=== PATIENT | female | born 1985 | race Hispanic/Latino ===

== ENCOUNTER 2018-01-27 17:44 | Inpatient (IN) | payer BC ==
[~2018-01-27] VITALS: Ht 170.2 cm; Wt 127.0 kg
[~2018-01-27 17:44] MED LIST: PREN1TAB89 PO
[2018-01-27] MEDS ORDERED: PROMETHAZINE HCL 25 MG/ML 1ML AMPULE IM PRN (18:00)
[2018-01-27] MEDS ORDERED: OXYTOCIN-LR 20 UNITS/1000 ML 1,000 ML IV SCH (18:00)
[2018-01-27 18:48] LABS: HEMATOCRIT 28.8 % (36-48); MEAN CORPUSCULAR HEMOGLOBIN 26.9 pg (27.0-33.0); MEAN CORPUSCULAR HGB CONC 34.9 g/dL (32.0-36.0); MEAN CORPUSCULAR VOLUME 77.2 fL (79-99); NUCLEATED RED BLOOD CELLS 0.1 % (0.0-0.19); PLATELET COUNT (AUTO) 269 K/uL (130-400); RED BLOOD CELL COUNT(AUTO) 3.73 MIL/uL (4.00-5.50); RED CELL DISTRIBUTION WIDTH 16.8 % (11.0-15.5); WHITE BLOOD COUNT (AUTO) 7.9 K/uL (4.8-10.8)
[2018-01-27 18:49] LABS: APPEARANCE,URINE Clear (CLEAR); BILIRUBIN,URINE Negative (NEGATIVE); COLOR,URINE Yellow (YELLOW); GLUCOSE, URINE (UA) Negative (NEGATIVE); KETONES,URINE Negative (NEGATIVE); LEUKOCYTE ESTERASE ,URINE Small (NEGATIVE); NITRATE,URINE Negative (NEGATIVE); OCCULT BLOOD,URINE Negative (NEGATIVE); PROTEIN,URINE Negative (NEGATIVE); UROBILINOGEN,URINE 0.2 mg/dL (0.2-1.0)
[2018-01-27 19:02] LABS: BACTERIA,URINE Few /HPF (None Seen); RBC,URINE None Seen /HPF (0-1)
[2018-01-27] MEDS: LACTATED RINGERS 1000ML 1,000 ML IV PRN (19:07)
[2018-01-27] MEDS: MEPERIDINE-PF 50 MG/ML SYG IVP PRN (22:02)
[2018-01-28] VITALS (9 sets, daily range): BP systolic 110–134; BP diastolic 64–80
[2018-01-28] MEDS: MEPERIDINE-PF 50 MG/ML SYG IVP PRN (00:32)
[2018-01-28] MEDS ORDERED: OXYTOCIN 10 USP UNITS/ML 20 UNIT in LACTATED RINGERS 1000ML 1,000 ML IV SCH ×3 (02:30)
[2018-01-28] MEDS ORDERED: OXYTOCIN 10 USP UNITS/ML ONE ×2 (03:02→11:32)
[2018-01-28] MEDS: LACTATED RINGERS 1000ML 1,000 ML IV PRN (03:35)
[2018-01-28] MEDS ORDERED: BENZOCAINE/LANOLIN/ALOE VERA 60 ML AEROSOL TP PRN (11:30)
[2018-01-28] MEDS ORDERED: ACETAMINOPHEN 325 MG TAB PO PRN (11:30)
[2018-01-28] MEDS ORDERED: ACETAMINOPHEN-CODEINE 300/30MG TAB PO PRN (11:30)
[2018-01-28] MEDS ORDERED: WITCH HAZEL 1 PAD TP PRN (11:30)
[2018-01-28] MEDS ORDERED: LANOLIN 30GM OINTMENT TP PRN (11:30)
[2018-01-28] MEDS: IBUPROFEN 600 MG TABLET PO PRN ×2 (11:38→23:31)
[2018-01-28] MEDS: DOCUSATE SODIUM 100 MG CAP PO SCH (20:59)
[2018-01-29 03:12] VITALS: BP 116/78
[2018-01-29 05:43] LABS: HEMATOCRIT 27.6 % (36-48); MEAN CORPUSCULAR HEMOGLOBIN 26.7 pg (27.0-33.0); MEAN CORPUSCULAR VOLUME 78.6 fL (79-99); PLATELET COUNT (AUTO) 213 K/uL (130-400); RED BLOOD CELL COUNT(AUTO) 3.51 MIL/uL (4.00-5.50); RED CELL DISTRIBUTION WIDTH 16.8 % (11.0-15.5); WHITE BLOOD COUNT (AUTO) 9.1 K/uL (4.8-10.8)
[2018-01-29 07:33] VITALS: BP 126/71
[2018-01-29 09:17] LABS: HEPATITIS Bs ANTIGEN SCREEN P Negative (Negative)
[2018-01-29] MEDS: DOCUSATE SODIUM 100 MG CAP PO SCH (09:17)
[2018-01-29] MEDS: IBUPROFEN 600 MG TABLET PO PRN ×2 (09:18→17:00)
[2018-01-29] MEDS ORDERED: FERS325 PO (10:49)
[2018-01-29] MEDS ORDERED: IBUP-2070 PO (10:49)
[2018-01-29 11:17] VITALS: BP 118/60
[2018-01-29 15:23] VITALS: BP 123/73
== END 2018-01-29 17:15 | disposition home or self-care (01) | DRG 775 ==
LOC: LDH 17:44 → WSH 01-28 10:55
PROVIDERS: ADMIT Obstetrics & Gynecology; ATTEND Obstetrics & Gynecology
PROC: 10E0XZZ Delivery of Products of Conception, External Approach (ICD-10-PCS; principal; 2018-01-28)
PROC: 10907ZC Drainage of Amniotic Fluid, Therapeutic from Products of Conception, Via Natural or Artificial Opening (ICD-10-PCS; 2018-01-28)
PROC: 0HQ9XZZ Repair Perineum Skin, External Approach (ICD-10-PCS; 2018-01-28)
PROC: 00HU33Z Insertion of Infusion Device into Spinal Canal, Percutaneous Approach (ICD-10-PCS; 2018-01-28)
PROC: 3E0R3BZ Introduction of Anesthetic Agent into Spinal Canal, Percutaneous Approach (ICD-10-PCS; 2018-01-28)
DX: O99.02 Anemia complicating childbirth (principal); D64.9 Anemia, unspecified; O70.0 First degree perineal laceration during delivery; Z28.21 Immunization not carried out because of patient refusal; Z37.0 Single live birth; Z3A.39 39 weeks gestation of pregnancy
CPT/HCPCS: 36415; 76815; 81001; 85027; 86592; 86850; 86900; 86901; 87340; A4314; J2175; J2550; J2590; J7120